=== PATIENT | female | born 1935 | race Caucasian/White ===

== ENCOUNTER 2017-11-05 12:01 | Emergency (ER) | payer MEDICARE, MEDICAID ==
[2017-11-05 12:10] VITALS: BMI 27.3
[2017-11-05 13:27] LABS: BASO # 0.1 K/uL (0.0-0.2); BASO % 0.4 % (0.0-2.0); EOS % 0.3 % (0.0-4.0); HEMOGLOBIN 13.4 g/dL (12.0-16.0); LYMPH % 7.8 % (20.0-40.0); MEAN CELL VOLUME 88.8 fl (81.0-99.0); MEAN CORPUSCULAR HEMOGLOBIN 30.6 pg (27.0-31.0); MEAN CORPUSCULAR HGB CONC 34.4 g/dL (33.0-37.0); MEAN PLATELET VOLUME 7.8 fl (7.2-11.7); MONO # 1.6 K/uL (0.0-0.8); MONO % 12.8 % (0.0-10.0); NEUT # 9.7 K/uL (1.8-7.0); NEUT % 78.7 % (50.0-75.0); PLATELET COUNT 229 K/uL (130-400); RBC 4.39 Mil/uL (3.80-5.20); RED CELL DISTRIBUTION WIDTH 13.3 % (11.5-14.5); WHITE BLOOD COUNT 12.4 K/uL (4.8-10.8)
[2017-11-05 13:31] LABS: INR 1.1; PROTHROMBIN TIME 12.7 Seconds (9.8-13.1)
[2017-11-05 13:35] LABS: ALB/GLOB RATIO 1.2 (1.0-2.1); ALBUMIN 4.3 g/dL (3.5-5.0); ALT/SGPT 29 U/L (9-52); AST/SGOT 28 U/L (14-36); BLOOD UREA NITROGEN 23 mg/dl (7-17); CALCIUM 9.7 mg/dL (8.4-10.2); GFR NON-AFRICAN AMERICAN 60
--- NOTE | 2017-11-05 14:06 | ED PDOC ---
HPI: Back Time Seen by Provider: 11/05/17 12:19 Chief Complaint (Nursing): Back Pain Chief Complaint (Provider): Back pain Additional Complaint(s): Jeana Clemente, an 81 year old female with history of lower back pain, presents to the emergency department with lower back pain onset yesterday. Patient states she has had these symptoms before and her PMD administers an injection for pain and has had lower back surgery 5 years ago. She is able to ambulate and denies trauma or heavy lifting. No further medical complaints. Past Medical History Reviewed: Historical Data, Nursing Documentation, Vital Signs Vital Signs: Last Vital Signs Temp 98.8 F 11/05/17 12:09 Pulse 98 H 11/05/17 12:09 Resp 16 11/05/17 12:09 BP 148/79 11/05/17 12:09 Pulse Ox 97 11/05/17 12:09 - Medical History PMH: Arthritis, HTN Other PMH: lower back pain - Surgical History Surgical History: Back Surgery (lower back) - Family History Family History: States: Unknown Family Hx - Home Medications Home Medications: Ambulatory Orders Medication Instructions Recorded Acetaminophen with Codeine 1 tab PO Q6H PRN #10 tab 11/05/17 [Tylenol with Codeine No. 3 300 mg-30 mg] Nitrofurantoin Macrocrystals 100 mg PO BID #13 cap 11/05/17 [Macrobid] - Allergies Allergies/Adverse Reactions: Allergies Allergy/AdvReac Type Severity Reaction Status Date / Time Penicillins Allergy Mild ITCHING Verified 11/05/17 12:22 Review of Systems ROS Statement: Except As Marked, All Systems Reviewed And Found Negative Musculoskeletal: Positive for: Back Pain (lower) Physical Exam - Reviewed Nursing Documentation Reviewed: Yes Vital Signs Reviewed: Yes - Physical Exam Appears: Positive for: Well, Non-toxic. Negative for: No Acute Distress ( moderate painful distress) Head Exam: Positive for: ATRAUMATIC, NORMAL INSPECTION, NORMOCEPHALIC Skin: Positive for: Normal Color, Warm, DRY Eye Exam: Positive for: EOMI, Normal appearance, PERRL ENT: Positive for: Normal ENT Inspection Neck: Positive for: Normal, Painless ROM Cardiovascular/Chest: Positive for: Regular Rate, Rhythm Respiratory: Positive for: Normal Breath Sounds. Negative for: Respiratory Distress Gastrointestinal/Abdominal: Positive for: Normal Exam, Soft Back: Positive for: Normal Inspection, Other (bilateral lower back). Negative for: L CVA Tenderness, R CVA Tenderness Extremity: Positive for: Normal ROM Neurologic/Psych: Positive for: Alert, Oriented - Laboratory Results Result Diagrams: 11/05/17 13:16 11/05/17 13:16 - ECG O2 Sat by Pulse Oximetry: 97 (RA) Pulse Ox Interpretation: Normal Medical Decision Making Medical Decision Making: Time: 12:19 Initial Impression: acute chronic lower back pain Initial Plan: --CT lumbar spine w/o contrast --CMP --ED urine dipstick --CBC w/ differential --PTT --Prothrombin Time --Morphone 1 mg IV --Glucose, Blood, POC stat --Urinalysis Time: 14:08 CT lumbar spine FINDINGS: VERTEBRAE: There are no acute compression fractures no retropulsed fragments. Vertebral bodies exhibit normal stature. Grade 1 retrolisthesis L3 over L4. Remaining vertebral bodies otherwise exhibit normal alignment. Facets are normally aligned. . DISCS/SPINAL CANAL/NEURAL FORAMINA: L1-2: Disc space narrowing more so along the anterior disc margin with small amount of vacuum phenomena. Broad-based disc ridge complex results in mild flattening of the ventral surface of the thecal sac. The overall central canal appears adequate at this level . Exit foramina appear adequate. . L2-3: There is mild disc space narrowing more so along the anterior disc margin with small amount of vacuum phenomena. Small broad-based disc bulge extends into the proximal inferior margins of both exit foramina more so on the right side. The central canal is marginal to minimally narrowed. Exit foramina are marginal to slightly narrowed as well. . L3-4: Marked disc space narrowing in addition to retrolisthesis of the L3 over L4 segment. Subchondral eburnation and small amount of vacuum phenomena. There is uncovering of the posterior inferior surface of the disc along with of small posterior osteophytic ridge. There is widening -subluxation of the hypertrophic facets due to the posterior subluxation with bilateral foraminal stenosis. L4-5: There is marked of posterior disc space narrowing with subchondral eburnation and subchondral cystic changes. There is a small broad-based disc bulge ridge complex that extends into the proximal inferior margins of both exit foramina. There is severe exit foraminal narrowing bilaterally due to encroaching inferior articular of facets of the L5 vertebral bodies bilaterally. . L5-S1: At the at L5-S1 level, there is moderate disc space narrowing with cortical endplate irregularity and minimal broad-based disc bulge ridge complex. Facets are hypertrophic. The overall central bony canal appears adequate. Proximal exit foramina are appear marginal to minimally narrowed. . PARASPINAL SOFT TISSUES: Unremarkable. OTHER FINDINGS: Note is made of exuberant diverticulosis along the sigmoid colon. Peripheral calcifications along the uterus likely vascular. IMPRESSION: No acute fractures. . There is an approximately grade 1 retrolisthesis of L three over L4 associated with well widening -subluxation of the L 3 and L4 facet joints. Significant multilevel degenerative spondylosis. . Significant bilateral foraminal stenosis due to encroaching facets at the L4 L5 exit foramina as above. Copy of CT report given to patient. Scribe Attestation: Documented by Radha Membreno, acting as a scribe for Isabell Reyes MD. Provider Scribe Attestation: All medical record entries made by the Scribe were at my direction and personally dictated by me. I have reviewed the chart and agree that the record accurately reflects my personal performance of the history, physical exam, medical decision making, and the department course for this patient. I have also personally directed, reviewed, and agree with the discharge instructions and disposition. Disposition - Clinical Impression Clinical Impression: Low back pain, Chronic back pain, UTI (urinary tract infection) - Disposition Referrals: Jeana Horvath MD [Family Provider] - Disposition: Routine/Home Disposition Time: 16:12 Condition: IMPROVED Prescriptions: Acetaminophen with Codeine [Tylenol with Codeine No. 3 300 mg-30 mg] 1 tab PO Q6H PRN #10 tab PRN Reason: Pain, Severe (8-10) Nitrofurantoin Macrocrystals [Macrobid] 100 mg PO BID #13 cap Instructions: Urinary Tract Infections in Adults, Low Back Pain in Adults Forms: [facility] [employer] [facility] (Croatian) Print Language: OCCITAN
--- NOTE | 2017-11-05 14:10 | CT ---
Date of service: 11/05/2017 PROCEDURE: CT Lumbar Spine without contrast HISTORY: Low back pain COMPARISON: No prior study available for comparison. TECHNIQUE: Axial computed tomography images were obtained of the lumbar spine without the use of intravenous contrast. Coronal and sagittal reformatted images were created and reviewed. Radiation dose: Total exam DLP = 1066.75 mGy-cm. This CT exam was performed using one or more of the following dose reduction techniques: Automated exposure control, adjustment of the mA and/or kV according to patient size, and/or use of iterative reconstruction technique. FINDINGS: VERTEBRAE: There are no acute compression fractures no retropulsed fragments. Vertebral bodies exhibit normal stature. Grade 1 retrolisthesis L3 over L4. Remaining vertebral bodies otherwise exhibit normal alignment. Facets are normally aligned. . DISCS/SPINAL CANAL/NEURAL FORAMINA: L1-2: Disc space narrowing more so along the anterior disc margin with small amount of vacuum phenomena. Broad-based disc ridge complex results in mild flattening of the ventral surface of the thecal sac. The overall central canal appears adequate at this level . Exit foramina appear adequate. . L2-3: There is mild disc space narrowing more so along the anterior disc margin with small amount of vacuum phenomena. Small broad-based disc bulge extends into the proximal inferior margins of both exit foramina more so on the right side. The central canal is marginal to minimally narrowed. Exit foramina are marginal to slightly narrowed as well. . L3-4: Marked disc space narrowing in addition to retrolisthesis of the L3 over L4 segment. Subchondral eburnation and small amount of vacuum phenomena. There is uncovering of the posterior inferior surface of the disc along with of small posterior osteophytic ridge. There is widening -subluxation of the hypertrophic facets due to the posterior subluxation with bilateral foraminal stenosis. L4-5: There is marked of posterior disc space narrowing with subchondral eburnation and subchondral cystic changes. There is a small broad-based disc bulge ridge complex that extends into the proximal inferior margins of both exit foramina. There is severe exit foraminal narrowing bilaterally due to encroaching inferior articular of facets of the L5 vertebral bodies bilaterally. . L5-S1: At the at L5-S1 level, there is moderate disc space narrowing with cortical endplate irregularity and minimal broad-based disc bulge ridge complex. Facets are hypertrophic. The overall central bony canal appears adequate. Proximal exit foramina are appear marginal to minimally narrowed. . PARASPINAL SOFT TISSUES: Unremarkable. OTHER FINDINGS: Note is made of exuberant diverticulosis along the sigmoid colon. Peripheral calcifications along the uterus likely vascular. IMPRESSION: No acute fractures. . There is an approximately grade 1 retrolisthesis of L three over L4 associated with well widening -subluxation of the L 3 and L4 facet joints. Significant multilevel degenerative spondylosis. . Significant bilateral foraminal stenosis due to encroaching facets at the L4 L5 exit foramina as above. .
[2017-11-05 14:35] LABS: BASOPHIL 1 % (0-2); EOSINOPHIL 1 % (0-7); LYMPHOCYTE 5 % (20-50); MONOCYTE 10 % (0-10); NEUTROPHIL 83 % (42-75); TOTAL CELLS COUNTED 100
[2017-11-05 14:36] LABS: PLATELET ESTIMATE NORMAL (NORMAL)
[2017-11-05 15:35] LABS: SQUAMOUS EPITHIAL 2 /hpf (0-5); URINE BACTERIA RARE (<OCC); URINE BILIRUBIN NEGATIVE (NEGATIVE); URINE BLOOD NEGATIVE (NEGATIVE); URINE CLARITY SLIGHTY-CLOUDY (Clear); URINE COLOR YELLOW (YELLOW); URINE GLUCOSE (UA) NEG (Normal); URINE HYALINE CAST 0-2 /hpf (0-2); URINE LEUKOCYTE ESTERASE MOD Leu/uL (Negative); URINE PROTEIN 30 mg/dL (NEGATIVE)
[2017-11-05 16:39] VITALS: BP 141/78; PULSE 75; RESP 18; TEMP 98.5
[2017-11-06 08:32] VITALS: O2SAT 97
== END 2017-11-05 16:39 | disposition home or self-care (01) ==
LOC: H.ER 12:01
DX: N39.0 Urinary tract infection, site not specified (principal); M54.5 Low back pain; G89.29 Other chronic pain; I10 Essential (primary) hypertension; M48.061 Spinal stenosis, lumbar region without neurogenic claudication; Z88.0 Allergy status to penicillin
CPT/HCPCS: 72131; 80053; 81003; 85025; 85610; 85730; 87086; 96374; 99283; J2270